=== PATIENT | female | born 1995 | race Caucasian/White ===

== ENCOUNTER 2017-02-15 20:26 | Emergency (ER) | payer BC, OTHER ==
[2017-02-15 21:24] VITALS: BP 118/77
[2017-02-15] MEDS ORDERED: Sulfamethox/Trimethoprim DS 800/160* TAB PO ONE (21:45)
--- NOTE | 2017-02-15 21:56 | UC ---
Skin Complaint HPI - HPI Summary HPI Summary: FOUR DAYS OF RIGHT AXILLARY SWELLING AND TENDERNESS WITH DRAINAGE TODAY. NO FEVER. NO HISTORY OF MRSA. WORKS AT [employer] A [employer]. - History of Current Complaint Chief Complaint: UCSkin Time Seen by Provider: 02/15/17 21:20 Stated Complaint: LUMP UNDER ARM Hx Obtained From: Patient Hx Last Menstrual Period: NOW Onset/Duration: Gradual Onset, Lasting Days, Still Present Skin Exposure Onset/Duration: Days Ago Onset Severity: Mild Current Severity: Moderate Location: Discrete - RIGHT AXILLA Character: Redness, Raised, Painful Aggravating: Nothing Alleviating: Nothing Associated Signs & Symptoms: Positive: Drainage, Tenderness. Negative: Fever, Chills, Cough, Wheezing, Chest Pain, Throat Tightening, Rash Related History: Possible Reaction to: Environmental Exposure, Closed Enviornment - WORKS IN [employer] - Allergy/Home Medications Allergies/Adverse Reactions: Allergies Allergy/AdvReac Type Severity Reaction Status Date / Time Penicillins Allergy Rash Verified 02/15/17 21:23 Home Medications: Home Medications Multiple Vitamins W/ Minerals [Vitamins & Minerals] 1 tab PO 02/15/17 [History] Review of Systems Constitutional: Negative Skin: Other - ABSCESS RIGHT AXILLA Eyes: Negative ENT: Negative Respiratory: Negative Cardiovascular: Negative Gastrointestinal: Negative Genitourinary: Negative Motor: Negative Neurovascular: Negative Musculoskeletal: Negative Neurological: Negative Psychological: Negative All Other Systems Reviewed And Are Negative: Yes PMH/Surg Hx/FS Hx/Imm Hx Previously Healthy: Yes Endocrine History Of: Denies: Diabetes, Thyroid Disease Cardiovascular History Of: Denies: Cardiac Disorders, Hypertension, Pacemaker/ICD Respiratory History Of: Denies: COPD, Asthma GI/ History Of: Denies: Ulcer - Surgical History Surgical History: Yes Surgery Procedure, Year, and Place: DEVIATED SEPTUM, WISDOM TEETH EXTRACTION - Family History Known Family History: Positive: Diabetes - Social History Occupation: Employed Full-time Lives: With Family Alcohol Use: Rare Substance Use Type: None Smoking Status (MU): Never Smoked Tobacco Have You Smoked in the Last Year: No Physical Exam Triage Information Reviewed: Yes Appearance: Well-Appearing, No Pain Distress, Well-Nourished Vital Signs: Initial Vital Signs Temp 97.7 F 02/15/17 21:18 Pulse 90 02/15/17 21:18 Resp 16 02/15/17 21:18 BP 118/77 02/15/17 21:18 Pulse Ox 100 02/15/17 21:18 Vital Signs Reviewed: Yes Eye Exam: Normal ENT Exam: Normal ENT: Positive: Normal ENT inspection, Hearing grossly normal, Pharynx normal, TMs normal Dental Exam: Normal Neck exam: Normal Neck: Positive: Supple, Nontender, No Lymphadenopathy Respiratory Exam: Normal Respiratory: Positive: Chest non-tender, Lungs clear, Normal breath sounds, No respiratory distress, No accessory muscle use Cardiovascular Exam: Normal Cardiovascular: Positive: RRR, No Murmur, Pulses Normal Abdominal Exam: Normal Abdomen Description: Positive: Nontender, No Organomegaly Musculoskeletal Exam: Normal Musculoskeletal: Positive: Strength Intact, ROM Intact Neurological Exam: Normal Psychological Exam: Normal Skin Exam: Other - DRAINING 2CM X 2CM ABSCESS RIGHT AXILLA Course/Dx - Differential Diagnoses - Skin Complaint Differential Diagnoses: Abscess, Cellulitis, Local Allergic Reaction, Lymphadenitis, Lymphangitis, MRSA - Diagnoses Provider Diagnoses: RIGHT AXILLARY ABSCESS Discharge - Discharge Plan Condition: Stable Disposition: HOME Prescriptions: Sulfamethox/Trimethoprim DS* [Bactrim DS 800/160 TAB*] 1 tab PO BID #20 tab Patient Education Materials: Abscess (ED), Warm Compress or Soak (ED) Referrals: [facility] [Outside] No Primary Care Phys,NOPCP [Primary Care Provider] - Images Front/Back of Body, Lg ([place]): 1 - DRAINING 2CM X 2CM ABSCESS RIGHT AXILLA
== END 2017-02-15 22:02 | disposition home or self-care (01) ==
LOC: UCEAST 20:26
DX: L02.411 Cutaneous abscess of right axilla (principal); Z88.0 Allergy status to penicillin
CPT/HCPCS: 87070; 87077; 87186; 87205; 87640; 87641; 99212; A9270-GY; G0463

== ENCOUNTER 2017-02-21 10:26 | Emergency (ER) | payer BC ==
[2017-02-21 10:38] VITALS: BP 127/70
--- NOTE | 2017-02-21 10:53 | UC ---
Skin Complaint HPI - HPI Summary HPI Summary: general body itching and rash on right side of neck and face--began after starting Bactrim for an abscess - History of Current Complaint Chief Complaint: UCRash Time Seen by Provider: 02/21/17 10:41 Stated Complaint: ITCHING,BUMPS- POSSIBLE MED REACT Hx Obtained From: Patient Hx Last Menstrual Period: 02/15/17 ?: No Onset/Duration: Sudden Onset, Lasting Days - 2, Still Present Skin Exposure Onset/Duration: Days Ago - 3 Timing: Constant Onset Severity: Moderate Current Severity: Mild Location: Diffuse - itching, Discrete - hives righ side of neck and face Character: Pruritus Aggravating: Nothing Alleviating: Nothing Associated Signs & Symptoms: Positive: Negative Related History: Recent change in medication - began Bactrim for abscess - Allergy/Home Medications Allergies/Adverse Reactions: Allergies Allergy/AdvReac Type Severity Reaction Status Date / Time Penicillins Allergy Rash Verified 02/15/17 21:23 Review of Systems Constitutional: Negative Skin: Rash Eyes: Negative ENT: Negative Respiratory: Negative Cardiovascular: Negative Gastrointestinal: Negative Genitourinary: Negative Motor: Negative Neurovascular: Negative Musculoskeletal: Negative Neurological: Negative Psychological: Negative All Other Systems Reviewed And Are Negative: Yes PMH/Surg Hx/FS Hx/Imm Hx Previously Healthy: Yes - Surgical History Surgical History: Yes Surgery Procedure, Year, and Place: DEVIATED SEPTUM, WISDOM TEETH EXTRACTION - Family History Known Family History: Positive: Diabetes - Social History Occupation: Employed Full-time Lives: With Family Alcohol Use: Rare Substance Use Type: None Smoking Status (MU): Never Smoked Tobacco Have You Smoked in the Last Year: No Physical Exam Triage Information Reviewed: Yes Appearance: Well-Appearing, No Pain Distress, Well-Nourished Vital Signs: Initial Vital Signs Temp 98.2 F 02/21/17 10:33 Pulse 82 02/21/17 10:33 Resp 18 02/21/17 10:33 BP 127/70 02/21/17 10:33 Pulse Ox 98 02/21/17 10:33 Vital Signs Reviewed: Yes Eye Exam: Normal Eyes: Positive: Conjunctiva Clear ENT Exam: Normal ENT: Positive: Normal ENT inspection, Hearing grossly normal, Pharynx normal, TMs normal. Negative: Nasal congestion, Nasal drainage, Trismus, Muffled/ hoarse voice Dental Exam: Normal Neck exam: Normal Neck: Positive: Supple, Nontender, No Lymphadenopathy Respiratory Exam: Normal Respiratory: Positive: Chest non-tender, Lungs clear, Normal breath sounds, No respiratory distress, No accessory muscle use Cardiovascular Exam: Normal Cardiovascular: Positive: RRR, No Murmur, Pulses Normal, Brisk Capillary Refill Musculoskeletal Exam: Normal Musculoskeletal: Positive: Strength Intact, ROM Intact, No Edema Neurological Exam: Normal Neurological: Positive: Alert, Muscle Tone Normal Psychological Exam: Normal Skin Exam: Normal Skin: Positive: Other - firm non draining abscess right axilla Course/Dx - Course Course Of Treatment: stop Bactrim, Change to Doxycycline, warm compress, follow with [facility] as planned - Differential Diagnoses - Skin Complaint Differential Diagnoses: Abscess, Drug Rash, Impetigo - Diagnoses Provider Diagnoses: Reaction to Bactrim, Right axilla abscess Discharge - Discharge Plan Condition: Stable Disposition: HOME Prescriptions: DOXYcycline CAP(*) [DOXYcycline 100MG CAP(*)] 100 mg PO BID #20 cap Patient Education Materials: Antibiotic Medication Allergy (ED), Abscess (ED), Warm Compress or Soak (ED) Referrals: [facility] [Provider Group] (As planned ) No Primary Care Phys,NOPCP [Primary Care Provider] -
== END 2017-02-21 11:02 | disposition home or self-care (01) ==
LOC: UCEAST 10:26
DX: T37.0X5A Adverse effect of sulfonamides, initial encounter (principal); L02.411 Cutaneous abscess of right axilla; Z88.0 Allergy status to penicillin
CPT/HCPCS: 99202; G0463

== ENCOUNTER 2017-04-01 21:23 | Emergency (ER) | payer BC ==
[2017-04-01 21:37] VITALS: BP 120/80
--- NOTE | 2017-04-01 21:38 | UC ---
Ear Complaint HPI - HPI Summary HPI Summary: Was cleaning her ear with a swab last night, suddenly R ear feeling clogged and stuffed up. Has had problems with wax buildup in the past. - History of Current Complaint Stated Complaint: EAR PAIN,CLOGGED Time Seen by Provider: 04/01/17 21:29 Hx Obtained From: Patient Hx Last Menstrual Period: 02/15/17 ?: No Onset/Duration: Sudden Onset Severity Initially: Mild Severity Currently: Mild Aggravating Factors: Nothing Alleviating Factors: Nothing Associated Signs/Symptoms: Positive: Hearing Loss - Allergies/Home Medications Allergies/Adverse Reactions: Allergies Allergy/AdvReac Type Severity Reaction Status Date / Time Penicillins Allergy Rash Verified 02/15/17 21:23 Sulfamethoxazole Allergy Rash Verified 04/01/17 21:37 w/Trimethoprim [From Bactrim] Home Medications: Home Medications Citalopram TAB* [CeleXA TAB*] 20 mg PO DAILY 04/01/17 [History Confirmed ] PMH/Surg Hx/FS Hx/Imm Hx Respiratory History: Asthma - Surgical History Surgical History: Yes Surgery Procedure, Year, and Place: DEVIATED SEPTUM, WISDOM TEETH EXTRACTION - Family History Known Family History: Positive: Diabetes - Social History Occupation: Employed Full-time Alcohol Use: Rare Substance Use Type: None Smoking Status (MU): Never Smoked Tobacco Have You Smoked in the Last Year: No Review of Systems Constitutional: Negative Skin: Negative Eyes: Negative ENT: Ear Ache Respiratory: Negative Cardiovascular: Negative Gastrointestinal: Negative Genitourinary: Negative Motor: Negative Neurovascular: Negative Musculoskeletal: Negative Neurological: Negative Psychological: Negative All Other Systems Reviewed And Are Negative: Yes Physical Exam Triage Information Reviewed: Yes Appearance: Well-Appearing, No Pain Distress, Well-Nourished Vital Signs Reviewed: Yes Eye Exam: Normal Eyes: Positive: Conjunctiva Clear ENT: Positive: Hearing grossly normal, Pharynx normal, TMs normal - post flush. Negative: Tonsillar swelling Dental Exam: Normal Neck exam: Normal Neck: Positive: Supple, Nontender, No Lymphadenopathy Respiratory Exam: Normal Respiratory: Positive: Chest non-tender, Lungs clear, Normal breath sounds, No respiratory distress, No accessory muscle use Cardiovascular Exam: Normal Cardiovascular: Positive: RRR, No Murmur Musculoskeletal Exam: Normal Neurological Exam: Normal Neurological: Positive: Alert Psychological Exam: Normal Skin Exam: Normal Ear Complaint Course/Dx - Differential Dx/Diagnosis Provider Diagnoses: R ear cerumen impaction Discharge - Discharge Plan Condition: Stable Disposition: HOME Patient Education Materials: Cerumen Impaction (ED) Referrals: No Primary Care Phys,NOPCP [Primary Care Provider] -
== END 2017-04-01 21:50 | disposition home or self-care (01) ==
LOC: UCEAST 21:23
DX: H61.21 Impacted cerumen, right ear (principal)
CPT/HCPCS: 99212; G0463

== ENCOUNTER 2017-05-05 16:51 | Emergency (ER) | payer BC ==
[2017-05-05 17:04] VITALS: BP 116/80
--- NOTE | 2017-05-05 17:14 | UC ---
Respiratory Complaint HPI - HPI Summary HPI Summary: 5 days of worsening headache cough nasal and chest congestion - History of Current Complaint Chief Complaint: UCRespiratory Stated Complaint: COUGH,HEADACHE,CONGESTION Time Seen by Provider: 05/05/17 17:07 Hx Obtained From: Patient Hx Last Menstrual Period: end March 2017 ?: No Onset/Duration: Gradual Onset, Lasting Days - 5, Still Present Timing: Constant Severity Initially: Mild Severity Currently: Moderate Character: Cough: Productive Aggravating Factors: Nothing Alleviating Factors: Bronchodilator - without relief Associated Signs And Symptoms: Positive: Pleuritic Chest Pain, URI, Sinus Discomfort - Allergies/Home Medications Allergies/Adverse Reactions: Allergies Allergy/AdvReac Type Severity Reaction Status Date / Time Penicillins Allergy Rash Verified 05/05/17 17:04 Sulfamethoxazole Allergy Rash Verified 05/05/17 17:04 w/Trimethoprim [From Bactrim] Home Medications: Home Medications Albuterol HFA INHALER* [Ventolin HFA Inhaler*] 05/05/17 [History Confirmed ] PMH/Surg Hx/FS Hx/Imm Hx Previously Healthy: Yes - Surgical History Surgical History: Yes Surgery Procedure, Year, and Place: DEVIATED SEPTUM, WISDOM TEETH EXTRACTION. Right axilla cyst 2016 - Family History Known Family History: Positive: Diabetes - Social History Occupation: Employed Full-time Lives: With Family Alcohol Use: Rare Substance Use Type: None Smoking Status (MU): Never Smoked Tobacco Have You Smoked in the Last Year: No Review of Systems Constitutional: Chills, Fatigue Skin: Negative Eyes: Negative ENT: Sore Throat, Ear Ache, Nasal Discharge Respiratory: Cough Cardiovascular: Negative Gastrointestinal: Negative Genitourinary: Negative Motor: Negative Neurovascular: Negative Musculoskeletal: Negative Neurological: Headache Psychological: Negative All Other Systems Reviewed And Are Negative: Yes Physical Exam Triage Information Reviewed: Yes Appearance: Well-Nourished, Ill-Appearing, Pain Distress Vital Signs: Initial Vital Signs Temp 98.3 F 05/05/17 17:00 Pulse 94 05/05/17 17:00 Resp 18 05/05/17 17:00 BP 116/80 05/05/17 17:00 Pulse Ox 96 05/05/17 17:00 Vital Signs Reviewed: Yes Eye Exam: Normal Eyes: Positive: Conjunctiva Clear ENT Exam: Normal ENT: Positive: Normal ENT inspection, Hearing grossly normal, Pharynx normal, Nasal congestion, Nasal drainage, TMs normal. Negative: Trismus, Muffled/ hoarse voice Dental Exam: Normal Neck exam: Normal Neck: Positive: Supple, Nontender, No Lymphadenopathy Respiratory Exam: Normal Respiratory: Positive: Chest non-tender, Lungs clear, Normal breath sounds, No respiratory distress, No accessory muscle use Cardiovascular Exam: Normal Cardiovascular: Positive: RRR, No Murmur, Pulses Normal, Brisk Capillary Refill Musculoskeletal Exam: Normal Musculoskeletal: Positive: Strength Intact, ROM Intact, No Edema Neurological Exam: Normal Neurological: Positive: Alert, Muscle Tone Normal Psychological Exam: Normal Skin Exam: Normal UC Diagnostic Evaluation - Laboratory O2 Sat by Pulse Oximetry: 96 Respiratory Course/Dx - Course Course Of Treatment: flonase, zithromax, increase fluids, follow with pcp prn - Differential Dx/Diagnosis Differential Diagnosis/HQI/PQRI: Asthma, Bronchitis, Laryngitis, Lower Resp Infection, Sinusitis, Tuberculosis Provider Diagnoses: Bronchitis,sinusitis Discharge - Discharge Plan Condition: Stable Disposition: HOME Prescriptions: Azithromycin TAB* [Zithromax TAB (Z-MONIK) 250 mg #6 tabs] 2 tab PO .TODAY, THEN 1 DAILY #6 tab Fluticasone NASAL SPRAY 50MCG* [Flonase NASAL SPRAY 50MCG*] 2 spray BOTH NARES DAILY #1 btl Patient Education Materials: Acute Bronchitis (ED), How to Use a Metered-Dose Inhaler (ED) Forms: *Work Release Referrals: Morales Cat MD [Primary Care Provider] - If Needed
== END 2017-05-05 17:34 | disposition home or self-care (01) ==
LOC: UCEAST 16:51
DX: J40 Bronchitis, not specified as acute or chronic (principal); J32.9 Chronic sinusitis, unspecified; Z88.0 Allergy status to penicillin; Z88.2 Allergy status to sulfonamides
CPT/HCPCS: 99212; G0463

== ENCOUNTER 2017-07-09 16:59 | Emergency (ER) | payer BC ==
--- NOTE | 2017-07-09 17:17 | UC ---
Abdominal Pain Female HPI - HPI Summary HPI Summary: 21 YEAR OLD FEMALE WITH A HISTORY OF SEVERE PRESENTS WITH COMPLAINS OF SEVERE NAUSEA/VOMITING - History of Current Complaint Stated Complaint: VOMITING Time Seen by Provider: 07/09/17 17:02 Hx Obtained From: Patient Hx Last Menstrual Period: end March 2017 Onset/Duration: Sudden Onset Severity Initially: Severe Severity Currently: Severe Allergies/Adverse Reactions: Allergies Allergy/AdvReac Type Severity Reaction Status Date / Time Penicillins Allergy Rash Verified 07/09/17 20:06 Sulfamethoxazole Allergy Rash Verified 07/09/17 20:06 w/Trimethoprim [From Bactrim] PMH/Surg Hx/FS Hx/Imm Hx Previously Healthy: Yes - Surgical History Surgical History: Yes Surgery Procedure, Year, and Place: DEVIATED SEPTUM, WISDOM TEETH EXTRACTION. Right axilla cyst 2016 - Family History Known Family History: Positive: Diabetes - Social History Alcohol Use: Rare Substance Use Type: None Smoking Status (MU): Never Smoked Tobacco Have You Smoked in the Last Year: No Review of Systems Constitutional: Negative Skin: Negative Eyes: Negative ENT: Negative Respiratory: Negative Cardiovascular: Negative Gastrointestinal: Vomiting, Nausea Genitourinary: Negative Motor: Negative Neurovascular: Negative Musculoskeletal: Negative Neurological: Negative Psychological: Negative All Other Systems Reviewed And Are Negative: Yes Physical Exam Triage Information Reviewed: Yes Vital Signs Reviewed: Yes Eye Exam: Normal ENT Exam: Normal Dental Exam: Normal Neck exam: Normal Neck: Positive: 1 Respiratory Exam: Normal Cardiovascular Exam: Normal Abdomen Description: Positive: Distended Musculoskeletal Exam: Normal Neurological Exam: Normal Psychological Exam: Normal Skin Exam: Normal Abd Pain Female Course/Dx - Differential Dx/Diagnosis Provider Diagnoses: abdominal pain. nausea/vomitting Discharge - Discharge Plan Condition: Stable Disposition: OTHER Discharge Disposition Comment: PATIENT SUGGESTED TO GO TO THE ER FOR SEVERE NAUSEA/VOMITTING WITH A HISTOR Patient Education Materials: Acute Nausea and Vomiting (ED) Referrals: Morales Cat MD [Primary Care Provider] - Additional Instructions: PATIENT SUGGESTED TO GO TO THE ER FOR SEVERE NAUSEA/VOMITTING WITH A HISTORY OF ELEVATED LFTS
== END 2017-07-09 17:32 ==
LOC: UCEAST 16:59
DX: R10.9 Unspecified abdominal pain (principal); R11.2 Nausea with vomiting, unspecified; Z88.0 Allergy status to penicillin; Z88.2 Allergy status to sulfonamides
CPT/HCPCS: 99211; G0463

== ENCOUNTER 2017-07-09 17:51 | Emergency (ER) | payer BC ==
[2017-07-09] MEDS ORDERED: NS 0.9% 1000 ML* 1,000 ML IV ONE (20:07)
[2017-07-09] MEDS ORDERED: Ondansetron INJ* 2 MG/ML VIAL IV ONE (20:07)
[2017-07-09] MEDS ORDERED: Acetaminophen TAB* 325 MG PO ONE (20:15)
[2017-07-09] MEDS ORDERED: Ibuprofen TAB* 600 MG PO ONE (20:17)
[2017-07-09 20:49] LABS: Urine Bacteria 1+ (Absent); Urine Bilirubin Negative (Negative); Urine Glucose Negative (Negative); Urine Nitrite Negative (Negative)
[2017-07-09 20:57] LABS: Hematocrit 37 % (35-47); Hemoglobin 12.1 g/dl (12.0-16.0); Mean Corpuscular HGB Conc 33 g/dl (31-36); Mean Corpuscular Hemoglobin 28 pg (27-31); Mean Corpuscular Volume 85 fL (80-97); Mean Platelet Volume 8 um3 (7.4-10.4); Red Blood Count 4.32 10^6/ul (4.0-5.4); Red Cell Distribution Width 14 % (10.5-15); White Blood Count 13.3 10^3/ul (3.5-10.8)
[2017-07-09 21:11] LABS: ALT 24 U/L (7-52); AST 19 U/L (13-39); Albumin 3.9 g/dL (3.2-5.2); Alkaline Phosphatase 88 U/L (34-104); Anion Gap 5 mmol/L (2-11); BUN/Creatinine Ratio 10.8 (8-20); Blood Urea Nitrogen 8 mg/dL (6-24); C Reactive Protein 3.82 mg/L (< 5.00); CO2 Carbon Dioxide 29 mmol/L (22-32); Chloride 102 mmol/L (101-111); EGFR African American 125.1 (>60); EGFR Non-African American 97.3 (>60); Globulin 2.8 g/dL (2-4); Glucose 100 mg/dL (70-100); Lipase 14 U/L (11.0-82.0); Potassium 3.9 mmol/L (3.5-5.0); Sodium 136 mmol/L (133-145); Total Protein 6.7 g/dL (6.4-8.9)
[2017-07-09] MEDS ORDERED: Metoclopramide IV* 5 MG/ML 2 ML VIAL IV ONE (21:31)
[2017-07-09] MEDS ORDERED: Ketorolac INJ* 30 MG/ML 1 ML VIAL IV ONE (21:31)
[2017-07-09] MEDS ORDERED: diPHENhydraMINE IV* 50 MG/ML 1 ml VIAL (BENADRYL) IV ONE (21:31)
--- NOTE | 2017-07-09 22:38 | ED ---
Yary Brock Nilda, scribed for Jet Ha MD on 07/09/17 at 2012 . GI/ HPI - HPI Summary HPI Summary: This patient is a 21 year old F presenting to [facility] accompanied by parents with a chief complaint of intermittent vomiting (11 times, yellow mucous-like) since 1300 today. Symptoms aggravated by nothing and alleviated by spontaneous resolution. Patient reports nausea, as well as mild RLQ pain (pressure). She denies diarrhea, abnormal BM, and abnormal urinary symptoms. LNMP 1 week ago. One month ago at [facility], she was told that her liver enzymes were elevated. She was tested for Hep C which was negative. - History of Current Complaint Chief Complaint: EDGeneral Stated Complaint: VOMITING Hx Obtained From: Patient Hx Last Menstrual Period: end March 2017 Onset/Duration: Started Hours Ago, Still Present Timing: Intermittent Current Severity: Moderate Pain Intensity: 0 Location of Pain: RLQ Pain Characteristics: Pressure Associated Signs and Symptoms: Positive: Other: - nausea, vomiting, RLQ pain Aggravating Factor(s): Nothing Alleviating Factor(s): Spontaneous Resolution - Allergy/Home Medications Allergies/Adverse Reactions: Allergies Allergy/AdvReac Type Severity Reaction Status Date / Time Penicillins Allergy Rash Verified 07/09/17 20:06 Sulfamethoxazole Allergy Rash Verified 07/09/17 20:06 w/Trimethoprim [From Bactrim] PMH/Surg Hx/FS Hx/Imm Hx Endocrine/Hematology History: Denies: Hx Diabetes, Hx Thyroid Disease Cardiovascular History: Denies: Hx Hypertension, Hx Pacemaker/ICD Respiratory History: Reports: Hx Asthma - excercise induced Denies: Hx Chronic Obstructive Pulmonary Disease (COPD) GI History: Denies: Hx Ulcer Musculoskeletal History: Denies: Hx Scoliosis Sensory History: Denies: Hx Hearing Aid Neurological History: Reports: Hx Headaches, Other Neuro Impairments/Disorders - FAMILY HX OF MUSCULAR DYSTROPHY Psychiatric History: Denies: Hx Panic Disorder - Surgical History Surgery Procedure, Year, and Place: DEVIATED SEPTUM, WISDOM TEETH EXTRACTION. Right axilla cyst 2017 Infectious Disease History: No Infectious Disease History: Denies: Hx Clostridium Difficile, Hx Hepatitis, Hx Human Immunodeficiency Virus (HIV), Hx of Known/Suspected MRSA, Hx Shingles, Hx Tuberculosis, Hx Known/ Suspected VRE, Hx Known/Suspected VRSA, History Other Infectious Disease, Traveled Outside the [place] in Last 30 Days - Family History Known Family History: Positive: Diabetes - Social History Alcohol Use: Rare Substance Use Type: Reports: None Smoking Status (MU): Never Smoked Tobacco Have You Smoked in the Last Year: No Review of Systems Positive: Abdominal Pain - RLQ pain (pressure), Vomiting - 11x today, Nausea, Other - negative abnormal BM. Negative: Diarrhea Positive: other - negative abnormal urinary symptoms All Other Systems Reviewed And Are Negative: Yes Physical Exam Triage Information Reviewed: Yes Vital Signs On Initial Exam: Initial Vitals Temp Pulse Resp BP Pulse Ox 97.2 F 92 20 136/82 100 07/09/17 17:54 07/09/17 17:54 07/09/17 17:54 07/09/17 17:54 07/09/17 17:54 Vital Signs Reviewed: Yes Appearance: Positive: Well-Appearing, No Pain Distress, Obese Skin: Positive: Warm, Skin Color Reflects Adequate Perfusion, Dry Head/Face: Positive: Normal Head/Face Inspection Eyes: Positive: Normal ENT: Positive: Other - Dry Mucous Membranes Neck: Positive: Supple, Nontender Respiratory/Lung Sounds: Positive: Clear to Auscultation, Breath Sounds Present Cardiovascular: Positive: RRR Abdomen Description: Positive: Nontender, Soft Bowel Sounds: Positive: Present Musculoskeletal: Positive: Normal Neurological: Positive: Normal Psychiatric: Positive: Normal, Affect/Mood Appropriate Diagnostics - Vital Signs Vital Signs Temp Pulse Resp BP Pulse Ox 07/09/17 17:54 97.2 F 92 20 136/82 100 - Laboratory Lab Results: Lab Results 07/09/17 07/09/17 07/09/17 Range/Units 20:30 20:48 20:48 WBC 13.3 H (3.5-10.8) 10^3/ul RBC 4.32 (4.0-5.4) 10^6/ul Hgb 12.1 (12.0-16.0) g/dl Hct 37 (35-47) % MCV 85 (80-97) fL MCH 28 (27-31) pg MCHC 33 (31-36) g/dl RDW 14 (10.5-15) % Plt Count 232 (150-450) 10^3/ul MPV 8 (7.4-10.4) um3 Neut % (Auto) 87.8 H (38-83) % Lymph % (Auto) 9.1 L (25-47) % [place] % (Auto) 2.8 (1-9) % Eos % (Auto) 0.1 (0-6) % Baso % (Auto) 0.2 (0-2) % Absolute Neuts (auto) 11.7 H (1.5-7.7) 10^3/ul Absolute Lymphs (auto) 1.2 (1.0-4.8) 10^3/ul Absolute Monos (auto) 0.4 (0-0.8) 10^3/ul Absolute Eos (auto) 0 (0-0.6) 10^3/ul Absolute Basos (auto) 0 (0-0.2) 10^3/ul Absolute Nucleated RBC 0 10^3/ul Nucleated RBC % 0 Sodium 136 (133-145) mmol/L Potassium 3.9 (3.5-5.0) mmol/L Chloride 102 (101-111) mmol/L Carbon Dioxide 29 (22-32) mmol/L Anion Gap 5 (2-11) mmol/L BUN 8 (6-24) mg/dL Creatinine 0.74 (0.51-0.95) mg/dL Est GFR ( Amer) 125.1 (>60) Est GFR (Non-Af Amer) 97.3 (>60) BUN/Creatinine Ratio 10.8 (8-20) Glucose 100 (70-100) mg/dL Lactic Acid (0.5-2.0) mmol/L Calcium 9.0 (8.6-10.3) mg/dL Total Bilirubin 0.70 (0.2-1.0) mg/dL AST 19 (13-39) U/L ALT 24 (7-52) U/L Alkaline Phosphatase 88 (34-104) U/L C-Reactive Protein 3.82 (< 5.00) mg/L Total Protein 6.7 (6.4-8.9) g/dL Albumin 3.9 (3.2-5.2) g/dL Globulin 2.8 (2-4) g/dL Albumin/Globulin Ratio 1.4 (1-3) Lipase 14 (11.0-82.0) U/L Beta HCG, Quant < 0.60 mIU/mL Urine Color Yellow Urine Appearance Cloudy Urine pH 8.0 (5-9) Ur Specific [place] 1.020 (1.010-1.030) Urine Protein 1+(30 mg/dl) H (Negative) Urine Ketones Negative (Negative) Urine Blood Negative (Negative) Urine Nitrate Negative (Negative) Urine Bilirubin Negative (Negative) Urine Urobilinogen Negative (Negative) Ur Leukocyte Esterase Trace H (Negative) Urine WBC (Auto) 1+(6-10/hpf) H (Absent) Urine RBC (Auto) Trace(0-2/hpf) (Absent) Ur Squamous Epith Cells Present H (Absent) Urine Bacteria 1+ H (Absent) Urine Glucose Negative (Negative) 07/09/17 Range/Units 20:48 WBC (3.5-10.8) 10^3/ul RBC (4.0-5.4) 10^6/ul Hgb (12.0-16.0) g/dl Hct (35-47) % MCV (80-97) fL MCH (27-31) pg MCHC (31-36) g/dl RDW (10.5-15) % Plt Count (150-450) 10^3/ul MPV (7.4-10.4) um3 Neut % (Auto) (38-83) % Lymph % (Auto) (25-47) % [place] % (Auto) (1-9) % Eos % (Auto) (0-6) % Baso % (Auto) (0-2) % Absolute Neuts (auto) (1.5-7.7) 10^3/ul Absolute Lymphs (auto) (1.0-4.8) 10^3/ul Absolute Monos (auto) (0-0.8) 10^3/ul Absolute Eos (auto) (0-0.6) 10^3/ul Absolute Basos (auto) (0-0.2) 10^3/ul Absolute Nucleated RBC 10^3/ul Nucleated RBC % Sodium (133-145) mmol/L Potassium (3.5-5.0) mmol/L Chloride (101-111) mmol/L Carbon Dioxide (22-32) mmol/L Anion Gap (2-11) mmol/L BUN (6-24) mg/dL Creatinine (0.51-0.95) mg/dL Est GFR ( Amer) (>60) Est GFR (Non-Af Amer) (>60) BUN/Creatinine Ratio (8-20) Glucose (70-100) mg/dL Lactic Acid 1.0 (0.5-2.0) mmol/L Calcium (8.6-10.3) mg/dL Total Bilirubin (0.2-1.0) mg/dL AST (13-39) U/L ALT (7-52) U/L Alkaline Phosphatase (34-104) U/L C-Reactive Protein (< 5.00) mg/L Total Protein (6.4-8.9) g/dL Albumin (3.2-5.2) g/dL Globulin (2-4) g/dL Albumin/Globulin Ratio (1-3) Lipase (11.0-82.0) U/L Beta HCG, Quant mIU/mL Urine Color Urine Appearance Urine pH (5-9) Ur Specific [place] (1.010-1.030) Urine Protein (Negative) Urine Ketones (Negative) Urine Blood (Negative) Urine Nitrate (Negative) Urine Bilirubin (Negative) Urine Urobilinogen (Negative) Ur Leukocyte Esterase (Negative) Urine WBC (Auto) (Absent) Urine RBC (Auto) (Absent) Ur Squamous Epith Cells (Absent) Urine Bacteria (Absent) Urine Glucose (Negative) Result Diagrams: 07/09/17 20:48 07/09/17 20:48 Lab Statement: Any lab studies that have been ordered have been reviewed, and results considered in the medical decision making process. GIGU Course/Dx - Course Course Of Treatment: Ms Fabian presented with a IBARRA accompanied by some photophobia and vomiting. She gets these on a daily basis. She was treated here with a 'migraine cocktail' of ketorolac, benadryl, reglan and IV NS and is improving. - Diagnoses Provider Diagnoses: Migraine Discharge - Discharge Plan Condition: Stable Disposition: HOME Patient Education Materials: Migraine Headache (ED) The documentation as recorded by the Yary ricci Nilda accurately reflects the service I personally performed and the decisions made by , Jet Ha MD.
[2017-07-10 01:24] VITALS: BP 114/70
== END 2017-07-10 01:10 | disposition home or self-care (01) ==
LOC: ED 17:51
DX: G43.909 Migraine, unspecified, not intractable, without status migrainosus (principal); Z88.0 Allergy status to penicillin; Z88.2 Allergy status to sulfonamides
CPT/HCPCS: 36415; 80053; 81003; 81015; 83605; 83690; 84702; 85025; 86140; 87086; 96360; 96374; 96375; 99284; A9270-GY; J1200; J1885; J2405; J2765

== ENCOUNTER 2017-09-19 07:08 | Emergency (ER) | payer BC ==
[2017-09-19 07:18] VITALS: BP 143/86
--- NOTE | 2017-09-19 07:31 | UC ---
Respiratory Complaint HPI - HPI Summary HPI Summary: 22 yo female with cough /runny nose x 1 week severe sore throat x 1-2 days feverish decreased oral intake upper teeth and gums sensitive - History of Current Complaint Chief Complaint: UCRespiratory Stated Complaint: SORE THROAT Time Seen by Provider: 09/19/17 07:24 Hx Obtained From: Patient Hx Last Menstrual Period: 08/05/17 Onset/Duration: Gradual Onset, Lasting Days Timing: Constant Severity Initially: Mild Severity Currently: Severe Pain Intensity: 10 Pain Scale Used: 0-10 Numeric Character: Cough: Nonproductive Aggravating Factors: Nothing Associated Signs And Symptoms: Positive: Fever, Nasal Congestion, Hoarseness, Sinus Discomfort - Allergies/Home Medications Allergies/Adverse Reactions: Allergies Allergy/AdvReac Type Severity Reaction Status Date / Time Penicillins Allergy Rash Verified 09/19/17 07:18 Sulfamethoxazole Allergy Rash Verified 09/19/17 07:18 w/Trimethoprim [From Bactrim] Home Medications: Home Medications SUMAtriptan TAB* [Imitrex TAB*] 50 mg PO DAILY PRN 09/19/17 [History Confirmed 09/19/17] PMH/Surg Hx/FS Hx/Imm Hx Previously Healthy: Yes - Surgical History Surgical History: Yes Surgery Procedure, Year, and Place: DEVIATED SEPTUM, WISDOM TEETH EXTRACTION. Right axilla cyst 2016 - Family History Known Family History: Positive: Cardiac Disease, Hypertension, Diabetes, Other - FRIEDRICK'S ATAXIA (sister) - Social History Alcohol Use: Rare Substance Use Type: None Smoking Status (MU): Never Smoked Tobacco Have You Smoked in the Last Year: No - Immunization History Most Recent Influenza Vaccination: none Review of Systems Constitutional: Fever, Fatigue Skin: Negative Eyes: Negative ENT: Dental Pain, Sore Throat, Nasal Discharge, Sinus Congestion, Sinus Pain/ Tenderness Respiratory: Cough Cardiovascular: Negative Gastrointestinal: Negative Genitourinary: Negative Motor: Negative Neurovascular: Negative Musculoskeletal: Negative Neurological: Negative Psychological: Negative Is Patient Immunocompromised?: No All Other Systems Reviewed And Are Negative: Yes Physical Exam Triage Information Reviewed: Yes Appearance: Well-Appearing, No Pain Distress, Well-Nourished Vital Signs: Initial Vital Signs Temp 97.9 F 09/19/17 07:13 Pulse 108 09/19/17 07:13 Resp 16 09/19/17 07:13 BP 143/86 09/19/17 07:13 Pulse Ox 97 09/19/17 07:13 Vital Signs Reviewed: Yes Eyes: Positive: Conjunctiva Clear ENT: Positive: Hearing grossly normal, Pharyngeal erythema, Nasal congestion, Nasal drainage, TMs normal, Hoarse voice, Sinus tenderness, Uvula midline. Negative: Tonsillar swelling, Tonsillar exudate, Trismus, Muffled voice, Dental tenderness Neck: Positive: Supple, Nontender, No Lymphadenopathy Respiratory: Positive: Lungs clear, Normal breath sounds, No respiratory distress Cardiovascular: Positive: RRR, No Murmur Musculoskeletal: Positive: ROM Intact, No Edema Neurological: Positive: Alert Psychological Exam: Normal Skin Exam: Normal UC Diagnostic Evaluation - Laboratory Pertinent Lab Values Are: WNL - strep (-) O2 Sat by Pulse Oximetry: 97 - normal/not hypoxic Respiratory Course/Dx - Differential Dx/Diagnosis Provider Diagnoses: acute sinusitis Discharge - Discharge Plan Condition: Stable Disposition: HOME Prescriptions: DOXYcycline CAP(*) [DOXYcycline 100MG CAP(*)] 100 mg PO BID #14 cap Prednisone 60 mg PO DAILY #6 tab Patient Education Materials: Sinusitis (ED) Referrals: Morales Cat MD [Primary Care Provider] - Additional Instructions: recheck next week if not completely better return for new or worsening symptoms
[2017-09-19] MEDS ORDERED: predniSONE TAB* 20 MG PO ONE (07:39)
[2017-09-19] MEDS ORDERED: DOXYcycline CAP(*) 100 MG PO ONE (07:39)
== END 2017-09-19 07:46 | disposition home or self-care (01) ==
LOC: UCEAST 07:08
DX: J01.90 Acute sinusitis, unspecified (principal); R53.83 Other fatigue; Z88.0 Allergy status to penicillin; Z88.2 Allergy status to sulfonamides
CPT/HCPCS: 87651; 99212; A9270-GY; G0463; J7512

== ENCOUNTER 2018-03-31 07:14 | Emergency (ER) | payer BC ==
[2018-03-31 07:30] VITALS: BP 137/87
--- NOTE | 2018-03-31 07:50 | UC ---
Skin Complaint HPI - HPI Summary HPI Summary: PATIENT HAS HAD ECZEMA SINCE CHILDHOOD AND HAD A SPOT ON HER ANTERIOR NECK FOR THE PAST 4 WEEKS. OVER THE PAST WEEK IT HAS INCREASED IN SIZE. IT IS VERY ITCHY AND IRRITATED. HAS BEEN USING NONSTEROID OTC LOTIONS/CREAMS WITHOUT ANY NOTICEABLE IMPROVEMENT. HAS A DERMATOLOGY APPOINTMENT IN 3 DAYS BUT WAS HOPING THERE IS SOMETHING THAT COULD HELP HER IN THE MEANTIME. STATES HE GETS WORSE IN THE HEAT. - History of Current Complaint Chief Complaint: UCSkin Time Seen by Provider: 03/31/18 07:42 Stated Complaint: RASH Hx Obtained From: Patient Hx Last Menstrual Period: has mirena IUD Onset/Duration: Gradual Onset, Lasting Weeks, Still Present Timing: Constant Onset Severity: Moderate Current Severity: Moderate Pain Intensity: 0 Pain Scale Used: 0-10 Numeric Location: Discrete - ANTERIOR UPPER CHEST AND NECK Character: Pruritus Aggravating Factor(s): Touch Alleviating Factor(s): Nothing Associated Signs & Symptoms: Positive: Rash, Tenderness. Negative: Fever, Drainage - Allergy/Home Medications Allergies/Adverse Reactions: Allergies Allergy/AdvReac Type Severity Reaction Status Date / Time amoxicillin Allergy Rash Verified 03/31/18 07:31 Penicillins Allergy Rash Verified 03/31/18 07:31 sulfamethoxazole Allergy Rash Verified 03/31/18 07:31 [From Bactrim] trimethoprim [From Bactrim] Allergy Rash Verified 03/31/18 07:31 Home Medications: Home Medications Cetirizine HCl 1 tab PO DAILY 03/31/18 [History Confirmed 03/31/18] Review of Systems Constitutional: Negative Skin: Rash Respiratory: Negative Cardiovascular: Negative Gastrointestinal: Negative All Other Systems Reviewed And Are Negative: Yes PMH/Surg Hx/FS Hx/Imm Hx - Additional Past Medical History Additional PMH: ECZEMA Respiratory History: Asthma Neurological History: Migraine - Surgical History Surgical History: Yes Surgery Procedure, Year, and Place: DEVIATED SEPTUM, WISDOM TEETH EXTRACTION. Right axilla cyst 2017 - Family History Known Family History: Positive: Cardiac Disease, Hypertension, Diabetes, Other - FRIEDRICK'S ATAXIA (sister) - Social History Alcohol Use: Rare Substance Use Type: None Smoking Status (MU): Never Smoked Tobacco Have You Smoked in the Last Year: No - Immunization History Most Recent Influenza Vaccination: none Physical Exam Triage Information Reviewed: Yes Appearance: Well-Appearing, No Pain Distress, Well-Nourished Vital Signs: Initial Vital Signs Temp 97.6 F 03/31/18 07:28 Pulse 90 03/31/18 07:28 Resp 14 03/31/18 07:28 BP 137/87 03/31/18 07:28 Pulse Ox 98 03/31/18 07:28 Vital Signs Reviewed: Yes Eyes: Positive: Conjunctiva Clear ENT: Positive: Hearing grossly normal Neck: Positive: Supple, Nontender, No Lymphadenopathy Respiratory: Positive: No respiratory distress, No accessory muscle use Cardiovascular: Positive: Pulses Normal Abdomen Description: Positive: Soft Musculoskeletal: Positive: No Edema Neurological: Positive: Alert Psychological: Positive: Age Appropriate Behavior Skin: Positive: rashes - ERYTHEMATOUS, IRRITATED, FLAKING RASH ANTERIOR UPPER CHEST AND NECK. NO DRAINAGE. MILDLY TENDER. Course/Dx - Diagnoses Provider Diagnoses: ECZEMA FLARE Discharge - Sign-Out/Discharge Documenting (check all that apply): Discharge/Admit/Transfer - Discharge Plan Condition: Stable Disposition: HOME Prescriptions: Clobetasol Propionate 0.05 % TOPICAL BID PRN #1 tube PRN Reason: Itching Patient Education Materials: Eczema (ED) Referrals: [facility] [Provider Group] - If Needed Additional Instructions: APPLY THE STEROID CREAM SPARINGLY TO THE AFFECTED AREA TWICE DAILY. AVOID THE HEALING TATTOO. KEEP YOUR DERMATOLOGY FOLLOW-UP IN 3 DAYS. - Billing Disposition and Condition Condition: STABLE Disposition: Home
== END 2018-03-31 07:59 | disposition home or self-care (01) ==
LOC: UCEAST 07:14
DX: L30.9 Dermatitis, unspecified (principal); J45.909 Unspecified asthma, uncomplicated; Z88.0 Allergy status to penicillin; Z88.2 Allergy status to sulfonamides
CPT/HCPCS: 99212; G0463

== ENCOUNTER 2018-06-15 07:09 | Emergency (ER) | payer BC ==
[2018-06-15 07:21] VITALS: BP 129/77
--- NOTE | 2018-06-15 07:41 | UC ---
Throat Pain/Nasal Melvin HPI - HPI Summary HPI Summary: This patient is a 22 year old F presenting to [facility] with a chief complaint of sinus pressure and congestion since 1.5 days ago. The CC is described as like having a balloon in my face with her eyes and her nose being pushed forward . The patient rates the pain 7/10 in severity. Symptoms aggravated by nothing. Symptoms alleviated by nothing (took Ibuprofen, Advil, and sinus decongestant to no relief). Patient reports IBARRA, cough, teeth pain, and stuffy nose. She has been trying to blow her nose but nothing comes out. Patient denies ear pain and fever. - History of Current Complaint Chief Complaint: UCGeneralIllness Stated Complaint: CONGESTED Hx Obtained From: Patient Hx Last Menstrual Period: current Onset/Duration: Sudden Onset, Lasting Days - 1.5 days ago, Still Present Severity: Moderate Pain Intensity: 7 Pain Scale Used: 0-10 Numeric Associated Signs & Symptoms: Positive: Other - Patient reports IBARRA, cough, teeth pain, and stuffy nose. She has been trying to blow her nose but nothing comes out. Patient denies ear pain and fever. - Allergies/Home Medications Allergies/Adverse Reactions: Allergies Allergy/AdvReac Type Severity Reaction Status Date / Time amoxicillin Allergy Rash Verified 06/15/18 07:21 Penicillins Allergy Rash Verified 06/15/18 07:21 sulfamethoxazole Allergy Rash Verified 06/15/18 07:21 [From Bactrim] trimethoprim [From Bactrim] Allergy Rash Verified 06/15/18 07:21 Home Medications: Home Medications Topiramate TAB(*) [Topamax 25 MG tab] 1 tab PO DAILY 06/15/18 [History Confirmed 06/15/18] PMH/Surg Hx/FS Hx/Imm Hx Endocrine History: Other Other Endocrine History: denies DM Cardiovascular History: Other Other Cardiovascular History: denies HTN - Surgical History Surgical History: Yes Surgery Procedure, Year, and Place: DEVIATED SEPTUM, WISDOM TEETH EXTRACTION. Right axilla cyst 2017 - Family History Known Family History: Positive: Cardiac Disease, Hypertension, Diabetes, Other - FRIEDRICK'S ATAXIA (sister) - Social History Alcohol Use: Rare Substance Use Type: None Smoking Status (MU): Never Smoked Tobacco Have You Smoked in the Last Year: No - Immunization History Most Recent Influenza Vaccination: none Most Recent Tetanus Shot: UTD Review of Systems Constitutional: Other - denies fever ENT: Dental Pain, Sinus Congestion - and pressure, Other - stuffy nose; denies ear pain Respiratory: Cough Neurological: Headache All Other Systems Reviewed And Are Negative: Yes Physical Exam - Summary Physical Exam Summary: General: well-appearing, no pain distress Skin: warm, color reflects adequate perfusion, dry Head: normal Eyes: EOMI, JEREMY ENT: Tenderness to percussion of frontal and maxillary sinuses. Positive rhinorrhea. Posterior pharynx has mild erythema. Neck: supple, Positive anterior cervical adenopathy. Respiratory: CTA, breath sounds present Cardiovascular: RRR Abdomen: soft, nontender Bowel: present Musculoskeletal: normal, strength/ROM intact Neurological: sensory/motor intact, A&O x3 Psychological: affect/mood appropriate Triage Information Reviewed: Yes Vital Signs: Initial Vital Signs Temp 97.3 F 06/15/18 07:16 Pulse 103 06/15/18 07:16 Resp 22 06/15/18 07:16 BP 129/77 06/15/18 07:16 Pulse Ox 99 06/15/18 07:16 Vital Signs Reviewed: Yes Throat Pain/Nasal Course/Dx - Course Course Of Treatment: DISCUSSED VIRAL VERSES BACTERIAL INFECTION AND THE ROLE OF ANTIBIOTICS. THE PATIENT WISHES TO BE ON ANTIBIOTICS AT THIS TIME. Assessment/Plan: Medications reviewed. Allergies noted. - Differential Dx/Diagnosis Provider Diagnoses: SINUSITIS Discharge - Sign-Out/Discharge Documenting (check all that apply): Patient Departure - Discharge All imaging exams completed and their final reports reviewed: No Studies - Discharge Plan Condition: Stable Disposition: HOME Prescriptions: Azithromyxin TEE (NF) [Z-Tee (Zithromax) 250 mg tabs #6] 2 tab PO .TODAY, THEN 1 DAILY #6 tab Patient Education Materials: Sinusitis (ED) Forms: *Work Release Referrals: [facility] [place] [facility] [[place]] Additional Instructions: FOLLOW UP WITH YOUR DOCTOR IF NOT COMPLETELY IMPROVED. GET RECHECKED FOR ANY WORSENING OF YOUR CONDITION OR QUESTIONS OR CONCERNS. - Billing Disposition and Condition Condition: STABLE Disposition: Home - Attestation Statements Document Initiated by Scribe: Yes Documenting Scribe: Syed Bee Provider For Whom Scribe is Documenting (Include Credential): Clyde Luna MD Scribe Attestation: Syed Brock, scribed for Clyde Luna MD on 06/15/18 at 1128. Scribe Documentation Reviewed: Yes Provider Attestation: The documentation as recorded by the scribe, Syed Bee accurately reflects the service I personally performed and the decisions made by me, Clyde Luna MD
== END 2018-06-15 07:55 | disposition home or self-care (01) ==
LOC: UCEAST 07:09
DX: J32.9 Chronic sinusitis, unspecified (principal); Z88.0 Allergy status to penicillin; Z88.2 Allergy status to sulfonamides
CPT/HCPCS: 99212; G0463